=== PATIENT | male | born 1945 | race Caucasian/White ===

== ENCOUNTER 2017-05-13 06:00 | Day surgery (SDC) | payer OTHER ==
[~2017-05-13 06:00] MED LIST: CELEBREX100 MG PO; MYSOLINE50 MG PO; PREDNISONE5 MG/DOSE- PO; SKELAXIN800 MG PO
== END 2017-05-13 16:30 | disposition home or self-care (01) ==
LOC: CIR.AMB 06:00
DX: K40.91 Unilateral inguinal hernia, without obstruction or gangrene, recurrent (principal)